=== PATIENT | male | born 1995 | race Caucasian/White ===

== ENCOUNTER 2018-07-20 16:59 | Emergency (ER) | payer OTHER ==
--- NOTE | 2018-07-20 18:21 | UC ---
Bite Injury/Animal HPI - HPI Summary HPI Summary: 22 y/o male presents to the urgent care c/o a cat bite on the dorsal side of his Rt hand at a Resort in [place] on 06/22/2018 while on vacation. Pt is concerned about Rabies exposure since he has read on internet that rabies can still present symptoms after 3 months of exposure. Pt reports he is not sure if the resort owned the cat of if it UTD w/ immunization. However, he was petting the cat and suddenly he he scratch his Rt hand. He washed his hand inmediately w/ soap and water and applied topical antibacterial ointment. He returned from his vacation and wound healed completely. However he is worry about rabies and requests Rabies prophylaxis. Pt is UTD w/ vaccines, However his last Tetanus vaccines was in 2010. Pt denies fever, CRABTREE, neck pain, rash, abdominal pain, SOB, chest pain, N/V/D, dizziness, myalgias or Hx of STD's - History of Current Complaint Chief Complaint: UCBiteInjury Stated Complaint: CAT BITE Time Seen by Provider: 07/20/18 18:02 Hx Obtained From: Patient Severity Currently: None Severity Initially: Mild Pain Intensity: 0 Pain Scale Used: 0-10 Numeric Onset/Duration: Sudden Onset, Lasting Weeks - 4 weeks ago cat bite at a resort in [facility] Type of Bite: Animal - cat scratch in the dorsal side of RT hand Has Animal Been Immunized?: Unknown Character: Abrasion/Laceration Aggravating Factor(s): Nothing Alleviating Factor(s): Other - sart already resolved w/o any signs of infection Associated Signs And Symptoms: Positive: Negative Hx of Bite: Unprovoked Animal Available for Observation: No Animal Control Notified: Yes - Risk Factors Infection/Sepsis Risk Factors: Delay in Initial Treatment - Allergies/Home Medications Allergies/Adverse Reactions: Allergies Allergy/AdvReac Type Severity Reaction Status Date / Time No Known Allergies Allergy Verified 07/20/18 17:23 Home Medications: Home Medications NK [No Home Medications Reported] 07/20/18 [History Confirmed 07/20/18] PMH/Surg Hx/FS Hx/Imm Hx Previously Healthy: Yes Respiratory History: Asthma - as a child - Surgical History Surgical History: Yes Surgery Procedure, Year, and Place: T&A - Family History Known Family History: Positive: Hypertension - Social History Occupation: Student Lives: Dormitory/Roommates Alcohol Use: Daily Alcohol Amount: 1 Substance Use Type: None Smoking Status (MU): Never Smoked Tobacco - Immunization History Hx Tetanus, Diphtheria Vaccination: Yes - 2010 Vaccination Up to Date: Yes Review of Systems All Other Systems Reviewed And Are Negative: Yes Constitutional: Positive: Negative Skin: Positive: Other - cat scratch in dorsal side of Rt hand already healed, concen about rabies exposure Eyes: Positive: Negative ENT: Positive: Negative Respiratory: Positive: Negative Cardiovascular: Positive: Negative Gastrointestinal: Positive: Negative Genitourinary: Positive: Negative Motor: Positive: Negative Neurovascular: Positive: Negative Musculoskeletal: Positive: Negative Neurological: Positive: Negative Psychological: Positive: Negative Is Patient Immunocompromised?: No Physical Exam - Summary Physical Exam Summary: Vital Signs Reviewed: Yes General: well developed, well nourished male adolescent sitting in the examining table w/o any apparent distress. Eyes: Positive: Conjunctiva Clear - PERRLA, EOMI ENT: Positive: Normal ENT inspection, Hearing grossly normal, Pharynx normal, TMs normal Neck: Positive: Supple, Nontender, No Lymphadenopathy Respiratory: Positive: Chest nontender, Lungs clear, Normal breath sounds Cardiovascular: Positive: RRR, No Murmur, Pulses Normal Abdomen Description: Positive: Nontender, No Organomegaly, Soft. Negative: CVA Tenderness (R), CVA Tenderness (L) Bowel Sounds: Positive: Present Musculoskeletal: Positive: Strength Intact, ROM Intact, No Edema Neurological Exam: Normal Psychological Exam: Normal Skin: Dorsal side of the RT mid hand w/ a small superficial linear scar from cat bite about 0.5cm in size, healing well, no swelling or erythema observed, non tender to palpation, FROM of Rt hand and full cascade of fingers. sensation intact, capillary refill WNL, reflexes: WNL Triage Information Reviewed: Yes Vital Signs: Initial Vital Signs Temp 98.4 F 07/20/18 17:14 Pulse 66 07/20/18 17:14 Resp 16 07/20/18 17:14 BP 123/65 07/20/18 17:14 Pulse Ox 100 07/20/18 17:14 Bite Injury Course/Dx - Course Course Of Treatment: 22 y/o male presents to the urgent care c/o a cat bite on the dorsal side of his Rt hand at a Resort in [place] on 06/22/2018 while on vacation. Pt is concerned about Rabies exposure since he has read on internet that rabies can still present symptoms after 3 months of exposure. Pt reports he is not sure if the resort owned the cat of if it UTD w/ immunization. However, he was petting the cat and suddenly he he scratch his Rt hand. He washed his hand inmediately w/ soap and water and applied topical antibacterial ointment. He returned from his vacation and wound healed completely. However he is worry about rabies and requests Rabies prophylaxis. Pt is UTD w/ vaccines, However his last Tetanus vaccines was in 2010. Pt denies fever, CRABTREE, neck pain, rash, abdominal pain, SOB, chest pain, N/V/D, dizziness, myalgias or Hx of STD'. Hx obtained. Pt w/ Dorsal side of the RT mid hand w/ a small superficial linear scar from cat bite about 0.5cm in size, healing well, no swelling or erythema observed, non tender to palpation, FROM of Rt hand and full cascade of fingers. sensation intact, capillary refill WNL, reflexes: WNL, on examination. Nurse Alcantar Contacted Health Department for recommendations and approval of Rabies vaccination. Health Department recommended Rabies prophylaxis. Rabies vaccine, Immunoglobulin ordered and Tdap. Since wound already healed Dr Pérez recommended only Immunoglobulin to give systemically only ant not at the bite site. Vaccines Administered by Nurse Alcantar. Pt tolerated well vaccines. Pt educated on Rabies and advised to f/u w/ health department for following doses on day 3,7,14,28. D/c instructions explained. Pt understood and agreed w/ plan of care. . - Differential Dx/Diagnosis Differential Diagnosis/HQI/PQRI: Cellulitis, Laceration, Rabies Exposure, Superficial Infection, Other - cat bite Provider Diagnosis: Cat bite of hand, Rabies exposure Discharge - Sign-Out/Discharge Documenting (check all that apply): Patient Departure - d/C home All imaging exams completed and their final reports reviewed: No Studies - Discharge Plan Condition: Stable Disposition: HOME Patient Education Materials: Rabies Vaccine (By injection), Rabies Immune Globulin (By injection), Animal Bite (ED) Referrals: [facility] [Primary Care Provider] - 3 Days Additional Instructions: 1- Your were given first dose of Rabies vaccine and Rabies Immunoglobulin. Please f/u w/ health department on day 3,7,14 and 28 for for following doses. 2- If you develop fever, CRABTREE, N/V, abdominal pain, respiratory distress, muscle pain, dizziness please return to the urgent care or take her to the ER for further management - Billing Disposition and Condition Condition: STABLE Disposition: Home
[2018-07-20] MEDS ORDERED: Rabies VIRUS VACCINE (Imovax)* 2.5 UNIT/ML 1 ML IM ONE (18:36)
[2018-07-20] MEDS ORDERED: Rabies Immune Globulin/PF 1ML* 1 ML/300 UNITS VIAL IM ONE (18:47)
[2018-07-20] MEDS ORDERED: Tetan/Diph/Pertus SYR(Tdap)* 0.5 ML SYR(BOOSTRIX) use SYR IM ONE (18:52)
[2018-07-20 19:50] VITALS: BP 107/68
== END 2018-07-20 19:46 | disposition home or self-care (01) ==
LOC: UCEAST 16:59
DX: Z20.3 Contact with and (suspected) exposure to rabies (principal); W55.01XA Bitten by cat, initial encounter; Z23 Encounter for immunization
CPT/HCPCS: 90375; 90471; 90472; 90715; 96372; 99201; G0463

== ENCOUNTER 2018-07-21 15:27 | Emergency (ER) | payer OTHER ==
[2018-07-21 16:02] VITALS: BP 114/61
[2018-07-21] MEDS ORDERED: Rabies Immune Globulin/PF 1ML* 1 ML/300 UNITS VIAL IM ONE (16:31)
--- NOTE | 2018-07-21 16:40 | UC ---
Bite Injury/Animal HPI - HPI Summary HPI Summary: PATIENT SUSTAINED A SUPERFICIAL CAT BITE TO THE BACK OF HIS RIGHT HAND WHEN [place] WAS IN THE [place] 4 WEEKS AGO ON 06/22/18. WAS PETTING A CAT ON THE PREMISES OF HIS RESORT. STATES IT BARELY BROKE THE SKIN. PRESENTED TO THE YESTERDAY 07/20/18 CONCERNED ABOUT RABIES. HEALTH DEPARTMENT APPROVED RIG AND RABIES VACCINATION SERIES. GIVEN THAT THE WOUND WAS ENTIRELY HEALED OVER RIG WAS GIVEN IM IN BILATERAL THIGHS. HEALTH DEPARTMENT CONTACTED PATIENT TODAY AND ADVISED HIM TO RETURN TO THE TO HAVE SOME AMOUNT OF RIG INJECTED AT THE BITE SITE. I SPOKE DIRECTLY WITH DR. FOLEY AND WAS GIVEN THE RECOMMENDATION TO INFILTRATE THE AREA OF THE BITE WITH 75 UNITS (0.25 ML) OF RABIES IMMUNOGLOBULIN. PATIENT TOLERATED THE INJECTIONS WELL YESTERDAY. THERE IS NO SKIN REACTION AT THE INJECTION SITES. - History of Current Complaint Chief Complaint: UCBiteInjury Stated Complaint: CAT BITE Time Seen by Provider: 07/21/18 16:22 Hx Obtained From: Patient Severity Currently: None Severity Initially: Mild Pain Intensity: 0 Pain Scale Used: 0-10 Numeric Onset/Duration: Sudden Onset Type of Bite: Animal Has Animal Been Immunized?: Unknown Character: Abrasion/Laceration Aggravating Factor(s): Nothing Alleviating Factor(s): Nothing Associated Signs And Symptoms: Negative: Fever, Erythema, Swelling, Lymphadenopathy, Numbness/Tingling Hx of Bite: Provoked by: - PETTING THE CAT - Allergies/Home Medications Allergies/Adverse Reactions: Allergies Allergy/AdvReac Type Severity Reaction Status Date / Time No Known Allergies Allergy Verified 07/21/18 16:02 PMH/Surg Hx/FS Hx/Imm Hx Respiratory History: Asthma - Surgical History Surgical History: Yes Surgery Procedure, Year, and Place: T&A - Family History Known Family History: Positive: Hypertension - Social History Alcohol Use: Daily Alcohol Amount: 1 Substance Use Type: None Smoking Status (MU): Never Smoked Tobacco - Immunization History Hx Tetanus, Diphtheria Vaccination: Yes - 2010 Vaccination Up to Date: Yes Review of Systems All Other Systems Reviewed And Are Negative: Yes Constitutional: Positive: Negative Skin: Positive: Other - COMPLETELY HEALED CAT BITE RIGHT HAND Respiratory: Positive: Negative Cardiovascular: Positive: Negative Gastrointestinal: Positive: Negative Physical Exam Triage Information Reviewed: Yes Appearance: Well-Appearing, No Pain Distress, Well-Nourished Vital Signs: Initial Vital Signs Temp 98.4 F 07/21/18 15:59 Pulse 71 07/21/18 15:59 Resp 18 07/21/18 15:59 BP 114/61 07/21/18 15:59 Pulse Ox 100 07/21/18 15:59 Vital Signs Reviewed: Yes Eyes: Positive: Conjunctiva Clear ENT: Positive: Hearing grossly normal Neck: Positive: Supple Respiratory: Positive: No respiratory distress, No accessory muscle use Cardiovascular: Positive: Pulses Normal Abdomen Description: Positive: Soft Musculoskeletal: Positive: ROM Intact, No Edema Neurological: Positive: Alert Psychological: Positive: Age Appropriate Behavior Skin: Positive: Other - 2MM LINEAR HYPOPIGMENTED AREA DORSAL SURFACE RIGHT HAND AT CAT BITE SITE. NOT TENDER. NO SWELLING. NO ERYTHEMA. NO DRAINAGE. RIG INJECTION SITES BILATERAL THIGHS WITHOUT ERYTHEMA, BRUISING, SWELLING OR TENDERNESS.. Negative: Rashes Bite Injury Course/Dx - Course Course Of Treatment: PATIENT WAS ADVISED BY THE HEALTH DEPARTMENT TO RETURN TO THE TODAY TO HAVE THE CAT BITE SITE ON HIS RIGHT HAND INFILTRATED WITH RIG. I SPOKE DIRECTLY WITH DR. MURILLO FOR A SPECIFIC RECOMMENDATION ON THE AMOUNT OF RIG TO BE INJECTED THE PATIENT ALREADY RECEIVED HIS FULL WEIGHT-BASED DOSING OF RIG INTRAMUSCULARLY YESTERDAY. DR. MURILLO ADVISED GIVING 75 UNITS (0.25 ML) OF RIG AT THE HEALED OVER CAT BITE SITE. PATIENT WILL RECEIVE THE REMAINDER OF HIS RABIES VACCINATION INJECTIONS AT THE HEALTH DEPARTMENT AND WILL HAVE HIS ANTIBODY TITERS CHECKED IN 2 WEEKS PER HEALTH DEPARTMENT RECOMMENDATIONS. - Differential Dx/Diagnosis Provider Diagnosis: Cat bite of right hand - Physician Notifications Discussed care of patient with: Arvind Murillo - ADVISED 75 UNITS RIG TO BITE SITE Time Discussed With Above Provider: 15:50 Discharge - Sign-Out/Discharge Documenting (check all that apply): Patient Departure All imaging exams completed and their final reports reviewed: No Studies - Discharge Plan Condition: Stable Disposition: HOME Patient Education Materials: Animal Bite (ED) Referrals: No Primary Care Phys,[facility] [Primary Care Provider] - Additional Instructions: 75 UNITS OF RABIES IMMUNE GLOBULIN INJECTED AT THE SITE OF THE CAT BITE TODAY PER HEALTH DEPARTMENT RECOMMENDATION. FOLLOW-UP WITH THE HEALTH DEPARTMENT SCHEDULED TO COMPLETE YOUR RABIES VACCINATION SERIES. YOUR TITERS WILL BE CHECKED AFTER YOUR LAST SHOT IN 2 WEEKS. - Billing Disposition and Condition Condition: STABLE Disposition: Home
== END 2018-07-21 16:59 | disposition home or self-care (01) ==
LOC: UCEAST 15:27
DX: Z20.3 Contact with and (suspected) exposure to rabies (principal); Z23 Encounter for immunization; W55.01XD Bitten by cat, subsequent encounter
CPT/HCPCS: 90375; 99211; G0463